=== PATIENT | male | born 1955 | race Caucasian/White ===

== ENCOUNTER → 2016-10-17 | Outpatient (CLI) | payer OTHER | LOC: FS 09:59 | PROVIDERS: ATTEND Internal Medicine Hematology & Oncology | DX: Z08 Encounter for follow-up examination after completed treatment for malignant neoplasm (principal); Z85.810 Personal history of malignant neoplasm of tongue; K21.9 Gastro-esophageal reflux disease without esophagitis; Z92.21 Personal history of antineoplastic chemotherapy; Z92.3 Personal history of irradiation | CPT/HCPCS: 99213 ==

== ENCOUNTER 2018-11-10 13:10 | Emergency (ER) | payer OTHER ==
[~2018-11-10] VITALS: Ht 175.3 cm; Wt 94.3 kg
--- NOTE | 2018-11-10 13:36 | ED Fever ---
History of Present Illness General Stated Complaint: FEVER,SORE THROAT,CONGESTION,CHEST TIGHTNESS History of Present Illness Date Seen by Provider: November 10, 2018 Time Seen by Provider: 13:22 Initial Comments The patient is a pleasant 63-year-old male who presents for evaluation of fever , sore throat, congestion, and postnasal drip over the last few days. The patient went to urgent care this morning and was told to go to the emergency department because of his elevated blood pressure and elevated heart rate. The patient reports some generalized body aches as well as a mild headache. He states that he had thrush earlier this year. He denies neck pain or neck stiffness, confusion, nausea or vomiting, chest pain or shortness of breath, abdominal pain, back or flank pain, urinary symptoms, rash, dizziness, palpitations, or syncope. He is alert and oriented 4, calm, and appears to be in no distress. Fever Quality: low grade Fever Therapy [facility]: none Associated Symptoms: cough, muscle aches, sore throat Allergies and Home Medications Allergies Coded Allergies: meperidine (Verified Allergy, Unknown, 11/10/18) Patient Home Medication List Home Medication List Reviewed: Yes Review of Systems Review of Systems Constitutional: see HPI, fever, malaise EENTM: nose congestion, throat pain Respiratory: cough Cardiovascular: no symptoms reported Gastrointestinal: no symptoms reported Genitourinary: no symptoms reported Musculoskeletal: muscle pain Skin: no symptoms reported Psychiatric/Neurological: No Symptoms Reported Hematologic/Lymphatic: No Symptoms Reported Immunological/Allergic: no symptoms reported All Other Systems Reviewed Negative Unless Noted: Yes Past Dhlbnob-Pxhajr-Joaqqf Hx Past Med/Social Hx: Reviewed Nursing Past Med/Soc Hx, Reviewed and Corrections made Physical Exam Vital Signs - First Documented 11/10/18 13:20 Temp 100.0 Pulse 127 Resp 20 B/P (MAP) 173/100 (124) Pulse Ox 96 O2 Delivery Room Air Capillary Refill : Height: '" Weight: lbs. oz. kg; BMI Method: General Appearance: WD/WN, no apparent distress HEENT: PERRL/EOMI, normal ENT inspection, pharynx normal Neck: non-tender, full range of motion, supple, normal inspection Respiratory: chest non-tender, lungs clear, normal breath sounds, no respiratory distress, no accessory muscle use Cardiovascular: no edema, no gallop, no JVD, no murmur, tachycardia Gastrointestinal: normal bowel sounds, non tender, soft, no organomegaly, no pulsatile mass Extremities: normal range of motion, non-tender, normal inspection, no pedal edema, no calf tenderness, normal capillary refill Neurologic/Psychiatric: disk sander II-XII nml as tested, no motor/sensory deficits, alert, normal mood/affect, oriented x 3; No abnormal gait, No motor weakness, No sensory deficit Skin: normal color, warm/dry; No rash Lymphatic: no adenopathy Focused Exam Lactate Level 11/10/18 13:48: Lactic Acid Level 1.02 Lactic Acid Level Laboratory Tests Test 11/10/18 13:48 Lactic Acid Level 1.02 MMOL/L (0.50-2.00) Progress/Results/Core Measures Suspected Sepsis SIRS Temperature: Pulse: Respiratory Rate: Laboratory Tests 11/10/18 13:48: White Blood Count 16.0H Blood Pressure / Mean: 11/10/18 13:48: Lactic Acid Level 1.02 Laboratory Tests 11/10/18 13:48: Creatinine 1.20, Platelet Count 201, Total Bilirubin 1.1H Results/Orders Lab Results Laboratory Tests Test 11/10/18 13:48 11/10/18 13:50 11/10/18 14:00 Range/Units White Blood Count 16.0 H 4.3-11.0 10^3/uL Red Blood Count 5.20 4.35-5.85 10^6/uL Hemoglobin 15.8 13.3-17.7 G/DL Hematocrit 45 40-54 % Mean Corpuscular Volume 87 80-99 FL Mean Corpuscular Hemoglobin 30 25-34 PG Mean Corpuscular Hemoglobin Concent 35 32-36 G/DL Red Cell Distribution Width 12.1 10.0-14.5 % Platelet Count 201 130-400 10^3/uL Mean Platelet Volume 10.1 7.4-10.4 FL Neutrophils (%) (Auto) 87 H 42-75 % Lymphocytes (%) (Auto) 5 L 12-44 % Monocytes (%) (Auto) 7 0-12 % Eosinophils (%) (Auto) 0 0-10 % Basophils (%) (Auto) 0 0-10 % Neutrophils # (Auto) 13.9 H 1.8-7.8 X 10^3 Lymphocytes # (Auto) 0.8 L 1.0-4.0 X 10^3 Monocytes # (Auto) 1.1 H 0.0-1.0 X 10^3 Eosinophils # (Auto) 0.1 0.0-0.3 10^3/uL Basophils # (Auto) 0.1 0.0-0.1 10^3/uL Sodium Level 138 135-145 MMOL/L Potassium Level 4.4 3.6-5.0 MMOL/L Chloride Level 97 L 98-107 MMOL/L Carbon Dioxide Level 28 21-32 MMOL/L Anion Gap 13 5-14 MMOL/L Blood Urea Nitrogen 12 7-18 MG/DL Creatinine 1.20 0.60-1.30 MG/DL Estimat Glomerular Filtration Rate > 60 BUN/Creatinine Ratio 10 Glucose Level 115 H 70-105 MG/DL Lactic Acid Level 1.02 0.50-2.00 MMOL/L Calcium Level 9.3 8.5-10.1 MG/DL Corrected Calcium 8.5-10.1 MG/DL Total Bilirubin 1.1 H 0.1-1.0 MG/DL Aspartate Amino Transf (AST/SGOT) 19 5-34 U/L Alanine Aminotransferase (ALT/SGPT) 27 0-55 U/L Alkaline Phosphatase 91 40-136 U/L Total Protein 7.3 6.4-8.2 GM/DL Albumin 4.6 H 3.2-4.5 GM/DL Group A Streptococcus Screen NEGATIVE NEGATIVE Urine Color YELLOW Urine Clarity CLEAR Urine pH 7.5 5-9 Urine Specific [place] 1.010 L 1.016-1.022 Urine Protein NEGATIVE NEGATIVE Urine Glucose (UA) NEGATIVE NEGATIVE Urine Ketones NEGATIVE NEGATIVE Urine Nitrite NEGATIVE NEGATIVE Urine Bilirubin NEGATIVE NEGATIVE Urine Urobilinogen 0.2 NORMAL MG/DL Urine Leukocyte Esterase NEGATIVE NEGATIVE Urine RBC (Auto) NEGATIVE NEGATIVE Urine RBC NONE /HPF Urine WBC NONE /HPF Urine Squamous Epithelial Cells RARE /HPF Urine Crystals NONE /LPF Urine Bacteria NONE /HPF Urine Casts NONE /LPF Urine Mucus NEGATIVE /LPF Urine Culture Indicated NO Micro Results Microbiology 11/10/18 Influenza Types A,B Antigen (SKY) - Final, Complete My Orders Orders - KIAN DIANA DO Rapid Strep A Screen (11/10/18 13:21) Cbc With Automated Diff (11/10/18 13:28) Comprehensive Metabolic Panel (11/10/18 13:28) Ua Culture If Indicated (11/10/18 13:28) Lactic Acid Analyzer (11/10/18 13:28) Blood Culture (11/10/18 13:28) Influenza A And B Antigens (11/10/18 13:28) Ekg Tracing (11/10/18 13:30) Chest 1 View Ap/Pa Only (11/10/18 13:30) Ns Iv 1000 Ml (Sodium Chloride 0.9%) (11/10/18 14:00) Acetaminophen Tablet (Tylenol Tablet) (11/10/18 14:00) Ketorolac Injection (Toradol Injection) (11/10/18 14:00) Manual Differential (11/10/18 13:48) Blood Culture (11/10/18 14:29) Ns Iv 1000 Ml (Sodium Chloride 0.9%) (11/10/18 15:30) Ct Chest W (11/10/18 15:57) Iohexol Injection (Omnipaque 350 Mg/Ml 1 (11/10/18 16:15) Received Contrast (Hold Metformin- Contr (11/10/18 16:15) Sodium Chloride Flush (Catheter Flush Sy (11/10/18 16:15) Ns (Ivpb) (Sodium Chloride 0.9% Ivpb Bag (11/10/18 16:15) Medications Given in ED Current Medications Medications Dose Ordered Sig/Heber Route Start Time Stop Time Status Last Admin Dose Admin Acetaminophen 1,000 mg ONCE ONCE PO 11/10/18 14:00 11/10/18 14:01 DC 11/10/18 14:17 1,000 MG Iohexol 100 ml ONCE ONCE IV 11/10/18 16:15 11/10/18 16:16 DC 11/10/18 16:27 75 ML Ketorolac Tromethamine 30 mg ONCE ONCE IVP 11/10/18 14:00 11/10/18 14:01 DC 11/10/18 14:17 30 MG Sodium Chloride 10 ml NEEDED PRN IV 11/10/18 16:15 11/10/18 16:27 10 ML Sodium Chloride 100 ml ONCE ONCE IV 11/10/18 16:15 11/10/18 16:16 DC 11/10/18 16:27 80 ML Sodium Chloride 1,000 ml ONCE ONCE IV 11/10/18 14:00 11/10/18 14:01 DC 11/10/18 14:16 1,000 ML Vital Signs/I&O 11/10/18 11/10/18 11/10/18 11/10/18 13:20 14:17 14:17 16:26 Temp 100.0 100.1 100.1 99.3 Pulse 127 110 Resp 20 20 B/P (MAP) 173/100 (124) 170/89 Pulse Ox 96 97 O2 Delivery Room Air Room Air Capillary Refill : Progress Note : Progress Note @1600 - Chest x-ray suggested could be a neoplastic process in the right upper lobe. For this reason a CT of the chest has been ordered. ECG Initial ECG Impression Date: November 10, 2018 Initial ECG Impression Time: 13:25 Initial ECG Rate: 126 Initial ECG Rhythm: S.Tach Initial ECG Intervals: Normal Comment Sinus tachycardia, rate of 126, mild left axis deviation, no acute ischemic findings noted, no STEMI, reviewed and interpreted by myself Diagnostic Imaging Diagonstic Imaging: Xray Plain Films/CT/US/NM/MRI: hand Comments [facility], [place] NAME: ARTIEBRIAN Enrico [facility] REC#: [id number] PT STATUS: REG ER : 1955 PHYSICIAN: KIAN DIANA DO ADMIT DATE: 11/10/18/ER FS Draft Date of Exam:11/10/18 CHEST 1 VIEW AP/PA ONLY EXAM: CHEST 1 VIEW AP/PA ONLY INDICATION: Chest tightness and congestion. COMPARISON: CT chest with IV contrast 04/02/2007. FINDINGS: Small airspace opacity in the right upper lobe. Normal heart size and central pulmonary vascularity. No pleural effusion or pneumothorax. No acute osseous findings. IMPRESSION: Small airspace opacity in the right upper lobe may be infectious or inflammatory. Neoplastic process is not excluded. Recommend followup to resolution. Dictated on workstation # [id number] Dict: 11/10/18 1349 Trans: 11/10/18 1354 [facility] [id number] Interpreted by: RENÉ BAY MD Electronically signed by: Departure Impression Primary Impression: Right upper lobe pneumonia Disposition: 01 HOME, SELF-CARE Condition: Stable Departure-Patient Inst. Decision time for Depature: 17:00 Referrals: ADRIANA VIEIRA (PCP) Primary Care Physician Patient Instructions: Pneumonia, Adult (DC) Add. Discharge Instructions: Take the prescribed medication as directed. Return to the ER for new or worsening symptoms. Follow up with your doctor in the next 2-3 days. Drink plenty of fluids at home. Take Tylenol at home for fever relief. Scripts Levofloxacin (Levaquin) 750 Mg Tablet 750 MG PO DAILY for pneumonia for 5 Days, #5 TAB Prov: KIAN DIANA DO 11/10/18 KIAN DIANA DO November 10, 2018 13:36
--- NOTE | 2018-11-10 13:55 | Diagnostic Imaging Report ---
EXAM: CHEST 1 VIEW AP/PA ONLY INDICATION: Chest tightness and congestion. COMPARISON: CT chest with IV contrast 04/02/2007. FINDINGS: Small airspace opacity in the right upper lobe. Normal heart size and central pulmonary vascularity. No pleural effusion or pneumothorax. No acute osseous findings. IMPRESSION: Small airspace opacity in the right upper lobe may be infectious or inflammatory. Neoplastic process is not excluded. Recommend followup to resolution. Dictated by: Dictated on workstation # [id number]
[2018-11-10] MEDS ORDERED: KETOROLAC 30 MG/ML VIAL IVP ONE (14:00)
[2018-11-10] MEDS ORDERED: ACETAMINOPHEN 500 MG TAB (TYLENOL) PO ONE (14:00)
[2018-11-10] MEDS ORDERED: NS 1000 ML IV BAG IV ONE (14:00)
[2018-11-10 14:04] LABS: BASOPHILS % (AUTO) 0 % (0-10); EOSINOPHILS % (AUTO) 0 % (0-10); HEMATOCRIT 45 % (40-54); HEMOGLOBIN 15.8 G/DL (13.3-17.7); LYMPHOCYTES # (AUTO) 0.8 X 10^3 (1.0-4.0); LYMPHOCYTES % (AUTO) 5 % (12-44); MEAN CORPUSCULAR HEMOGLOBIN 30 PG (25-34); MEAN CORPUSCULAR HGB CONC 35 G/DL (32-36); MEAN CORPUSCULAR VOLUME 87 FL (80-99); MEAN PLATELET VOLUME 10.1 FL (7.4-10.4); MONOCYTES # (AUTO) 1.1 X 10^3 (0.0-1.0); MONOCYTES % (AUTO) 7 % (0-12); NEUTROPHILS # (AUTO) 13.9 X 10^3 (1.8-7.8); NEUTROPHILS % (AUTO) 87 % (42-75); PLATELET COUNT 201 10^3/uL (130-400); RED CELL DISTRIBUTION WIDTH 12.1 % (10.0-14.5)
[2018-11-10 14:05] LABS: BASOPHILS # (AUTO) 0.1 10^3/uL (0.0-0.1); EOSINOPHILS # (AUTO) 0.1 10^3/uL (0.0-0.3)
[2018-11-10 14:27] LABS: SODIUM 138 MMOL/L (135-145)
[2018-11-10 14:28] LABS: ALANINE AMINOTRANSFERASE 27 U/L (0-55); ALBUMIN 4.6 GM/DL (3.2-4.5); BILIRUBIN,TOTAL 1.1 MG/DL (0.1-1.0); BUN/CREATININE RATIO 10; CALCIUM 9.3 MG/DL (8.5-10.1); CARBON DIOXIDE 28 MMOL/L (21-32); CHLORIDE 97 MMOL/L (98-107); GFR ESTIMATED > 60; GLUCOSE 115 MG/DL (70-105); POTASSIUM 4.4 MMOL/L (3.6-5.0); TOTAL PROTEIN 7.3 GM/DL (6.4-8.2)
[2018-11-10 14:45] LABS: ALKALINE PHOSPHATASE 91 U/L (40-136)
[2018-11-10 15:04] LABS: BILIRUBIN,URINE NEGATIVE (NEGATIVE); CLARITY,URINE CLEAR; COLOR,URINE YELLOW; GLUCOSE, URINE (UA) NEGATIVE (NEGATIVE); KETONES,URINE NEGATIVE (NEGATIVE); LEUKOCYTE ESTERASE ,URINE NEGATIVE (NEGATIVE); NITRITE,URINE NEGATIVE (NEGATIVE); PH,URINE 7.5 (5-9); PROTEIN,URINE NEGATIVE (NEGATIVE); SQUAMOUS EPITHELIAL CELL,UR RARE /HPF; UROBILINOGEN,URINE 0.2 MG/DL (NORMAL)
[2018-11-10] MEDS ORDERED: NS IV 1000 ML 1,000 ML IV SCH (15:30)
[2018-11-10] MEDS ORDERED: CATHETER FLUSH 10 ML SYR IV PRN (16:15)
[2018-11-10] MEDS ORDERED: NS 100 ML (IVPB) BAG IV ONE (16:15)
[2018-11-10] MEDS ORDERED: IOHEXOL 350 MG/ML 100 ML (OMNIPAQUE 350) VIAL IV ONE (16:15)
[2018-11-10] MEDS ORDERED: HOLD METFORMIN - RECEIVED CONTRAST 20 ML VIAL IV SCH (16:15)
--- NOTE | 2018-11-10 16:48 | Diagnostic Imaging Report ---
PROCEDURE: CT chest with contrast only. TECHNIQUE: Multiple contiguous axial images were obtained through the chest after administration of intravenous contrast. Auto Exposure Controls were utilized during the CT exam to meet ALARA standards for radiation dose reduction. INDICATION: Chest radiograph, 11/10/2018. CT chest with IV contrast 04/02/2007. COMPARISON: None. FINDINGS: Patchy airspace consolidation throughout the right upper lobe. The lungs are otherwise clear. No endobronchial lesions. No pleural effusion or pneumothorax. Normal heart size. Normal caliber thoracic aorta and central pulmonary arteries. No mediastinal, hilar or axillary lymphadenopathy. Visualized upper bowel contents are unremarkable. Osseous structures are intact. IMPRESSION: Patchy airspace consolidation in the right upper lobe is most compatible with an infectious or inflammatory pneumonitis. Recommend followup to resolution. Dictated by: Dictated on workstation # [id number]
[2018-11-10] MEDS ORDERED: LEVO750T9 PO (17:02)
[2018-11-10] MEDS ORDERED: LEVOFLOXACIN 750 MG TAB (LEVAQUIN) PO ONE (17:15)
[2018-11-10 17:21] VITALS: BP 160/86
[2018-11-10 18:49] LABS: BAND NEUTROPHILS 18 %; BASOPHILS % (MANUAL) 0 %; EOSINOPHILS % (MANUAL) 1 %; LYMPHOCYTES % (MANUAL) 9 %; MONOCYTES % (MANUAL) 11 %; NEUTROPHILS % (MANUAL) 61 %; RBC MORPH NORMAL
== END 2018-11-10 17:23 | disposition home or self-care (01) ==
LOC: EDUNIT# 13:10 → ER FS 13:13
DX: J18.1 Lobar pneumonia, unspecified organism (principal); Z88.8 Allergy status to other drugs, medicaments and biological substances
CPT/HCPCS: 36415; 71045; 71260; 80053; 81000; 83605; 85007; 85027; 87040; 87430; 87804; 93005; 96361; 96374